=== PATIENT | male | born 1935 | race Caucasian/White ===

== ENCOUNTER → 2017-01-28 | Day surgery (SDC) | payer MEDICARE, BC ==
[~2017-01-28] MED LIST: ASPIRIN325 MG PO; CILOSTAZOL100 MG PO; FLUOXETINE HCL40 MG PO; ISOSORBIDE MONO60 MG PO; JANUVIA50 MG PO; LIPITOR TAB 2020 MG PO; LISINOPRIL5 MG PO; METOPROLOL TART25 MG PO; METOPROLOL TART50 MG PO; NEURONTIN 400400 MG PO; NITROSTAT 0.40.4 MG SL; NORCO 10-325 T1 EACH PO; NOVOLOG100 UNIT/1 ID; PANTOPRAZOLE SO40 MG PO; PLAVIX 75 MG TA75 MG PO; PROTONIX 40 MG40 M1 PO; VITAMIN B-12 INJ
== END | disposition home or self-care (01) ==
LOC: OR 08:04
PROVIDERS: Internal Medicine Gastroenterology
PROC: 0DB68ZX Excision of Stomach, Via Natural or Artificial Opening Endoscopic, Diagnostic (ICD-10-PCS; principal; 2017-01-28 13:00)
DX: K29.50 Unspecified chronic gastritis without bleeding (principal); E11.9 Type 2 diabetes mellitus without complications; I11.0 Hypertensive heart disease with heart failure; I51.9 Heart disease, unspecified; E66.9 Obesity, unspecified; R13.14 Dysphagia, pharyngoesophageal phase; Z95.5 Presence of coronary angioplasty implant and graft; Z79.82 Long term (current) use of aspirin; Z79.02 Long term (current) use of antithrombotics/antiplatelets; Z79.891 Long term (current) use of opiate analgesic; Z79.899 Other long term (current) drug therapy; Z82.49 Family history of ischemic heart disease and other diseases of the circulatory system; Z83.3 Family history of diabetes mellitus
CPT/HCPCS: 82962; J2250; J3010; J7030

== ENCOUNTER → 2017-02-07 | Outpatient (CLI) | payer MEDICARE, BC | LOC: RAD 02-03 08:00 | DX: R13.10 Dysphagia, unspecified (principal); K29.00 Acute gastritis without bleeding; K22.8 Other specified diseases of esophagus | CPT/HCPCS: 74220 ==